=== PATIENT | female | born 1960 | race Caucasian/White ===

== ENCOUNTER 2017-05-08 09:23 | Outpatient (CLI) | payer OTHER ==
--- NOTE | 2017-05-08 14:34 | DEXA Report ---
DEXA SCAN: 05/08/2017 CLINICAL INDICATION: Postmenopausal. TECHNIQUE: Dual energy x-ray absorptiometry (DXA) was performed on a [employer] system. Regions measured are the AP spine, femoral neck, and, if needed, forearm. COMPARISON: None. In accordance with the International Society for Clinical Densitometry (ISCD) guidelines, data from previous exams may be reanalyzed using current recommendations and techniques. This is done to allow a more accurate basis for comparison with the current study. FINDINGS: The data for the lumbar spine is as follows: REGION BMD (g/cm/cm) T-SCORE Z-SCORE L1 0.886 -2.0 -1.0 L2 0.892 -2.6 -1.5 L3 0.918 -2.3 -1.3 L4 0.927 -2.3 -1.3 TOTAL 0.908 -2.3 -1.3 NOTE: All evaluable vertebrae are used for classification. The data for the hip is as follows: REGION BMD (g/cm/cm) T-SCORE Z-SCORE Neck 0.758 -2.0 -0.9 TOTAL 0.894 -0.9 -0.1 NOTE: The femoral neck or total proximal femur, whichever is lowest, is used for classification. IMPRESSION: THE WHO CLASSIFICATION BASED ON THE INTERNATIONAL REFERENCE STANDARD IS OSTEOPENIA. THE FRACTURE RISK IS INCREASED. RECOMMENDATION: Patients with diagnosis of osteoporosis or osteopenia should have regular bone mineral density assessment. For those eligible for Medicare, routine testing is allowed once every 2 years. Testing frequency can be increased for patients who have rapidly progressing disease or for those who are receiving medical therapy to restore bone mass. COMMENT: World Health Organization (WHO) definitions for osteoporosis and osteopenia: NORMAL BMD: T-score at -1.0 or higher, fracture risk is low. OSTEOPENIA BMD: T-score between -1.0 and -2.5, fracture risk is increased. OSTEOPOROSIS BMD: T-score at -2.5 or lower, fracture risk high. National Osteoporosis Foundation recommends: 1. Obtain adequate dietary calcium (at least 1200 mg per day) and vitamin D (400 -800 international units per day). 2. Participate, as appropriate, in regular weightbearing and muscle- strengthening exercise. 3. Avoid tobacco use and reduce alcohol and caffeine intake. 4. For more detailed information see the website at www.NOF.org. MTDD
== END 2017-05-08 09:24 | disposition home or self-care (01) ==
LOC: DI 09:23
PROVIDERS: ATTEND Acupuncturist
DX: M85.89 Other specified disorders of bone density and structure, multiple sites (principal)
CPT/HCPCS: 77080

== ENCOUNTER 2021-09-09 10:40 | Outpatient (CLI) | payer OTHER ==
--- NOTE | 2021-09-09 11:49 | DEXA Report ---
PROCEDURE: Dexa Spine and/or Hip INDICATIONS: OSTEOPENIA TECHNIQUE: Dual energy x-ray absorptiometry (DXA) was performed on a [employer] System. Regions measur ed are the AP Spine, femoral neck, and if needed forearm. COMPARISON: None. FINDINGS: Lumbar Spine: Bone Mineral Density 0.864 g/cm/cm,T score -2.6. Left Hip: Bone Mineral Density 0.871 g/cm/cm,T score -1.1. Left Femoral Neck: Bone Mineral Density 0.686 g/cm/cm, T score -2.5. (T score greater or equal to -1.0: NORMAL) (T score from -1.1 to -2.4: OSTEOPENIA) (T score less than or equal to -2.5 to: OSTEOPOROSIS) Impression: Osteoporosis. Patients with diagnosis of osteoporosis or osteopenia should have regular bone mineral density assess ment. For those eligible for Medicare, routine testing is allowed once every 2 years. Testing frequ ency can be increased for patients who have rapidly progressing disease or for those who are receivin g medical therapy to restore bone mass. Reviewed by: Giancarlo Dwyer MD on 09/09/2021 11:48 AM PST Approved by: Giancarlo Dwyer MD on 09/09/2021 11:48 AM PST Station ID: [id number]
== END 2021-09-09 10:41 | disposition home or self-care (01) ==
LOC: DI 10:40
PROVIDERS: ATTEND Nurse Practitioner Family
DX: M81.0 Age-related osteoporosis without current pathological fracture (principal)

== ENCOUNTER 2022-03-06 15:46 | Outpatient (CLI) | payer OTHER ==
--- NOTE | 2022-03-06 17:12 | XRAY Report ---
PROCEDURE: Hand 3 View LT INDICATIONS: XRAY TECHNIQUE: 3 views of the hand(s) acquired. COMPARISON: None FINDINGS: Bones: No fractures or dislocations. No suspicious bony lesions. Soft tissues: No suspicious soft tissue calcifications. IMPRESSION: No fracture. No osseous lesion. If symptoms and/or clinical concern for pathology persists, further a ssessment with repeat plain film radiographs (7-10 days) or advanced imaging (CT, MR, bone scan) shou ld be considered. Reviewed by: Valarie Walker MD, PhD on 03/06/2022 5:10 PM PDT Approved by: Valarie Walker MD, PhD on 03/06/2022 5:10 PM PDT Station ID: [id number]
--- NOTE | 2022-03-06 17:12 | XRAY Report ---
PROCEDURE: Wrist 3 View LT INDICATIONS: XRAY TECHNIQUE: 3 views of the wrist were acquired. COMPARISON: None FINDINGS: Bones: No fractures or dislocations. No suspicious bony lesions. Soft tissues: No suspicious soft tissue calcifications. IMPRESSION: No fracture. No osseous lesion. If symptoms and/or clinical concern for pathology persists, further a ssessment with repeat plain film radiographs (7-10 days) or advanced imaging (CT, MR, bone scan) shou ld be considered. Reviewed by: Valarie Walker MD, PhD on 03/06/2022 5:11 PM PDT Approved by: Valarie Walker MD, PhD on 03/06/2022 5:11 PM PDT Station ID: [id number]
--- NOTE | 2022-03-07 17:17 | XRAY Report ---
PROCEDURE: Wrist 3 View RT INDICATIONS: XRAY TECHNIQUE: 3 views of the wrist were acquired. COMPARISON: Right hand from the same date FINDINGS: Bones: No fractures or dislocations. No suspicious bony lesions. Scaphoid view: Scaphoid intact Soft tissues: No suspicious soft tissue calcifications. IMPRESSION: No evidence acute bony abnormality of the right wrist. Reviewed by: Shan Mcconnell MD on 03/07/2022 5:16 PM PDT Approved by: Shan Mcconnell MD on 03/07/2022 5:16 PM PDT Station ID: [id number]
--- NOTE | 2022-03-07 17:17 | XRAY Report ---
PROCEDURE: Hand 3 View RT INDICATIONS: XRAY TECHNIQUE: 3 views of the hand(s) acquired. COMPARISON: None FINDINGS: Bones: No fractures or dislocations. No suspicious bony lesions. Soft tissues: No suspicious soft tissue calcifications. IMPRESSION: No evidence acute bony abnormality of the right hand. Reviewed by: Shan Mcconnell MD on 03/07/2022 5:15 PM PDT Approved by: Shan Mcconnell MD on 03/07/2022 5:15 PM PDT Station ID: [id number]
== END 2022-03-06 15:47 | disposition home or self-care (01) ==
LOC: DI.S 15:46
PROVIDERS: ATTEND Nurse Practitioner Family
DX: M25.531 Pain in right wrist (principal); M25.532 Pain in left wrist; M79.642 Pain in left hand; M79.641 Pain in right hand